=== PATIENT | female | born 1995 | race Caucasian/White ===

== ENCOUNTER 2024-06-16 06:12 | Inpatient (IN) | payer MEDICAID ==
[~2024-06-16] VITALS: Ht 170.2 cm; Wt 95.9 kg
[2024-06-16] VITALS (45 sets, daily range): BP systolic 104–135; BP diastolic 56–88; PULSE 71–104; TEMP 97.8–98.4
[~2024-06-16 06:12] MED LIST: PRENATAL TABLET PO
[2024-06-16] MEDS ORDERED: LR & Oxytocin 500 ML IV SCH ×2 (06:15)
[2024-06-16] MEDS ORDERED: LR 1,000 ML IV PRN (06:15)
[2024-06-16] MEDS ORDERED: LR 1,000 ML IV SCH ×2 (06:15→10:45)
--- NOTE | 2024-06-16 06:20 | NUR ---
0620PT AMBULATORY TO UNIT, WITH MOTHER. HERE FOR SCHEDULED INDUCTION. PT CHANGED INTO GOWN. PT COMFORTABLE IN BED. 0625THIS RN AT BEDSIDE TO PLACE TOCO AND EFM. EFM TRACING CAT I. THIS RN DISCUSSES POC WITH PT. PT VERBALIZES UNDERSTANDING AND AGREEMENT. 0630PT STATES POSITIVE MOVMENT. PT DENIES CTX. PT DENIES LOF. PT REPORTS NO VAGINAL BLEEDING SINCE THURSDAY. PT STATES SHE WAS HERE ON LABOR AND DELIVERY ON THURSDAY TO GET CHECKED AND GOT SENT HOME. 0640IV STARTED AT THIS TIME. 0645FIRST BAG OF IV FLUIDS STARTED AT THIS TIME. 0652SVE AT THIS TIME. /-3. CERVIX POSTERIOR. 0656PITOCIN STARTED AT THIS TIME.
[2024-06-16 07:09] LABS: HEMOGLOBIN 10.6 g/dl (12.5-16.0); MEAN CELL VOLUME 94 fl (80.0-100.0); MEAN CORPUSCULAR HEMOGLOBIN 31 pg (27-31); MEAN CORPUSCULAR HGB CONC 33 g/dl (33.0-37.0); MEAN PLATELET VOLUME 10.2 fl (7.4-10.4); PLATELET COUNT 197 K/mm3 (130-400); RED BLOOD COUNT 3.42 M/mm3 (4.10-5.30); REDCELL DISTRIBUTION WIDTH-CV 13.2 % (11.5-14.5)
[2024-06-16 07:11] LABS: HEMATOCRIT 32.1 % (37.0-47.0)
--- NOTE | 2024-06-16 07:28 | NUR ---
0725DR SUNDAY AT BEDSIDE. DISCUSSES POC WITH PT. PT VERBALIZES UNDERSTANDING. 0728DR SUNDAY BEDSIDE SONO AT THIS TIME. BABY HEAD DOWN VIA SONO. PT TOLERATED WELL.
[2024-06-16 07:54] LABS: BAND 9 % (0-10); LYMPHOCYTE 29 % (20.0-51.0); METAMYELOCYTE 1 % (0-0); NEUTROPHILS 58 % (42.0-75.2); PLATELET ESTIMATE NORMAL (NORMAL)
[2024-06-16 08:13] LABS: TRICYCLIC ANTIDEPRESS URINE NEGATIVE (NEGATIVE)
--- NOTE | 2024-06-16 08:31 | NUR ---
0828PT UP TO VOID PRIOR TO AROM. 0831AROM PER DR BRAND AT THIS TIME. SVE PER DR BRAND. 3. PT TOLERATED WELL. EFM TRACING CAT I.
--- NOTE | 2024-06-16 09:35 | NUR ---
SVE PER THIS RN. /-2. PT TOLERATED FAIR. PT REQUESTS EPIDURAL.
[2024-06-16] MEDS ORDERED: ROPivacaine PF 0.2% 200 ML IV ONE (10:09)
--- NOTE | 2024-06-16 10:22 | NUR ---
0940[employer]ICER NOTIFIED OF PT REQUEST FOR EPIDURAL. 1005TODD ON UNIT. THIS RN AT BEDSIDE. 1008PT SITTING UP ON SIDE OF BED. PULSE OX PLACED. PT VITAL SIGNS STABLE. 1012TODD AT BEDSIDE. DISCUSSES POC WITH PT. PT VERBALIZES UNDERSTANDING AND AGREEMENT. 1022TEST DOSE ADMINISTERED AT THIS TIME PER GUY CONNELLY. PT TOLERATED WELL. 1028PT RETURNED TO BED. POSITIONED WEDGE RIGHT. PT COMFORTABLE.
[2024-06-16] MEDS ORDERED: diphenhydrAMINE 25 MG CAP PO PRN (10:45)
[2024-06-16] MEDS ORDERED: Naloxone 0.4 MG/ML VIAL IV PRN ×2 (10:45→17:45)
[2024-06-16] MEDS ORDERED: Ondansetron 4 MG/2 ML VIAL IV PRN (10:45)
[2024-06-16] MEDS ORDERED: diphenhydrAMINE 50 MG/ML 1 ML VIAL IV PRN (10:45)
[2024-06-16] MEDS ORDERED: LR 500 ML IV PRN (10:45)
[2024-06-16] MEDS ORDERED: ePHEDrine 50 MG/10 ML VIAL IV PRN (10:45)
--- NOTE | 2024-06-16 11:45 | NUR ---
1045RECURRENT VARIABLE DECELS NOTED. THIS RN AT BEDSIDE. 1055SVE PER THIS RN. 7/80/-1. SHELDON PLACED AT THIS TIME. PT TOLERATED WELL. 1058PT REPOSITIONED WEDGE LEFT. RECURRENT VARIABLES CONTINUE. THIS RN REMAINS AT BEDSIDE. 1115DR NEWCOMER NOTIFIED. VORB TO TURN OFF PITOCIN. 1118PITOCIN TURNED OFF AT THIS TIME. VARIALE DECELS CONTINUE. 1125[place] RN AT BEDSIDE. SVE PER THIS RN. /0. PT REPOSITIONED LEFT LATERAL WITH A PEANUT BALL. 1135INTERMITTENT VARIABLE DECELS NOTED. THIS RN REMAINS AT BEDSIDE. 1141EFM DIFFICULT TO TRACE. EDITH RN AND DARRYL RN AT BEDSIDE. 1145SVE PER THIS RN. 8-/0. INTERNAL FSE PLACED PER THIS RN. 1148EFM TRACING CAT I WITH INTERMITTENT VARIABLE DECELS.
--- NOTE | 2024-06-16 12:35 | NUR ---
1230DR SUNDAY AT BEDSIDE. SVE 8/-1. FSE KNOCKED OFF. 1235DR SUNDAY PLACES IUPC AND FSE. 1245VORB PER DR BRAND TO START AMNIOINFUSION. 1249AMNIOFUSION BOLUS STARTED AT THIS TIME. 1255VORB PER DR BRAND TO RESTART PITOCIN. PITOCIN STARTED AT 2 MU. 1302RECURRENT VARIABLE DECELS NOTED. THIS RN AT BEDSIDE. PT STATES SHE FEELS NAUSEOUS. 1305LOW BLOOD PRESSURE NOTED. 100/59. 1306FIRST DOSE OF EPHEDRINE GIVEN. 1310LOW BLOOD PRESSURE RESOLVED. 106/56 1315PT REPOSITIONED TO [facility]. 1320AMNIOINFUSION BOLUS DONE. MANITENANCE DOSE STARTED. 1325RECURRENT VARIABLE DECELS CONTINUE. 1410SVE PER DR BRAND. SVE UNCHANGED. 1418PT REPOSITIONED TO [facility] AND FORWARD LEANING WITH SQUAT BAR. 1425RECURRENT VARIABLE DECELS RESOLVED.
[2024-06-16] MEDS ORDERED: NS 1,000 ML IV SCH (12:45)
--- NOTE | 2024-06-16 15:30 | NUR ---
1530PT REPORTS COUGHING AND FEELING A BIG MULLER OF FLUID WITH SOME BLOOD PRESENT. 1531THIS RN AT BEDSIDE TO ASSESS. 1535SVE PER THIS RN. /0. IUPC STILL PRESENT. FSE STILL PRESENT AND TRACING. EFM TRACING CAT I WITH INTERMITTENT VARIABLE DECELS.
--- NOTE | 2024-06-16 16:26 | NUR ---
1610DR BRAND ON UNIT 1612SVE PER DR BRAND. 1615DR SUNDAY HAS PT PRACTICE PUSH. SVE 100/100+1. 1618FOLEY REMOVED PER THIS RN. ROOM AND PT SET UP FOR DELIVERY. NSY AND CHARGE NURSES AT BEDSIDE. 1620DR BRAND AND THIS RN BEGIN PUSHING WITH PT. GOOD MATERNAL EFFORT. 1624IUPC REMOVED. 1626SVD OF VIABLE MALE PER DR BRAND. NC X1. PLACED ON MATERNAL ABDOMEN. CARE ASSUMED BY NURSERY. 1630SVD OF PLACENTA PER DR BRAND. PITOCIN BOLUS STARTED. PERINEUM INTACT. FUNDUS FIRM AT U. LOCHIA WNL. 1635ROOM AND BED PUT BACK TOGETHER. PT COMFORTABLE IN BED. PERICARE PERFORMED. CHUX PAD CHANGED. ICE PACK PLACED ON PERINEUM. FUNDUS FIRM AT U. LOCHIA WNL.
[2024-06-16] MEDS ORDERED: Magnes Hydrox (MOM) 80 MG/ML 30 ML CUP PO PRN (16:45)
[2024-06-16] MEDS ORDERED: Loratadine 10 MG TAB PO PRN (16:45)
[2024-06-16] MEDS ORDERED: Sennosides/Docusate 8.6-50 MG TAB PO SCH (17:00)
[2024-06-16] MEDS ORDERED: Acetaminophen 500 MG TAB PO SCH (17:45)
[2024-06-16] MEDS ORDERED: Phenylephrine/Mineral Oil/Petrolatum 57 GM TUBE RC PRN (17:45)
[2024-06-16] MEDS ORDERED: oxyCODONE 5 MG TAB PO PRN (17:45)
[2024-06-16] MEDS ORDERED: Witch Hazel 50% Pads Bulk TUB TP PRN (17:45)
[2024-06-16] MEDS ORDERED: Mag/Al Hydrox/Simeth Susp 30 ML CUP PO PRN (17:45)
[2024-06-16] MEDS ORDERED: Ibuprofen 600 MG TAB PO SCH (17:45)
[2024-06-16] MEDS ORDERED: Measles/Mumps/Rubella Virus Vaccine Live w Diluent 0.5 ML VIAL SQ SCH (17:45)
[2024-06-16] MEDS ORDERED: Tdap Vaccine 0.5 ML SYRINGE IM SCH (17:45)
--- NOTE | 2024-06-16 18:40 | NUR ---
Assisted to bathroom using Jhoana TOOVIA. Note, patient reports her right leg feels completely normal, left leg still heavy, can feel the bottom of her leg, but knee up still numb. Kaci care provided. Unable to spontaneously void at this time. Kaci pad, ice pack, mesh underwear, and clean gown applied. Transferred to room 215 per Jhoana TOOVIA. Instructed to call for assistance getting out of bed. Fall precautions given. Report to Nazia Hardin RN, who will resume care. Informed patient will need assistance getting out of bed. Patient verbalizes understanding, agrees to call before attempting to get out of bed.
[2024-06-16] MEDS ORDERED: traZODone 50 MG TAB PO PRN (21:00)
[2024-06-17 00:30] VITALS: BP 114/63; PULSE 70; TEMP 98
[2024-06-17 05:27] LABS: HEMOGLOBIN 10.2 g/dl (12.5-16.0)
[2024-06-17 05:36] LABS: HEMATOCRIT 31.5 % (37.0-47.0)
[2024-06-17 07:27] VITALS: BP 116/74; PULSE 85; TEMP 98.2
[2024-06-17] MEDS ORDERED: IBU600 MG PO (08:09)
[2024-06-17] MEDS ORDERED: TYLENOL 500MG500 MG PO (08:10)
[2024-06-17] MEDS ORDERED: Prenatal Vitamins/Iron/FA TAB PO SCH (09:00)
--- NOTE | 2024-06-17 09:45 | NUR ---
Initial visit: Mom thanked Typewriter Ribbon Winder for looking in on her and baby boy. Typewriter Ribbon Winder offered congratulations and God's blessings for the of her son. Patient states his siblings are all looking forward to meeting the new member of their family.
[2024-06-17 16:00] VITALS: BP 112/67; PULSE 72
== END 2024-06-17 17:30 | disposition home or self-care (01) | DRG 807 ==
LOC: OB 06:12 → LDR 06:12 → OB 06:45
PROVIDERS: ADMIT Obstetrics & Gynecology
PROC: 10E0XZZ Delivery of Products of Conception, External Approach (ICD-10-PCS; principal; 2024-06-16)
PROC: 3E033VJ Introduction of Other Hormone into Peripheral Vein, Percutaneous Approach (ICD-10-PCS; 2024-06-16)
PROC: 10907ZC Drainage of Amniotic Fluid, Therapeutic from Products of Conception, Via Natural or Artificial Opening (ICD-10-PCS; 2024-06-16)
PROC: 3E0E37Z Introduction of Electrolytic and Water Balance Substance into Products of Conception, Percutaneous Approach (ICD-10-PCS; 2024-06-16)
PROC: 10H07YZ Insertion of Other Device into Products of Conception, Via Natural or Artificial Opening (ICD-10-PCS; 2024-06-16)
DX: O99.02 Anemia complicating childbirth (principal); Z37.0 Single live birth; Z3A.39 39 weeks gestation of pregnancy
CPT/HCPCS: J2590; J2795; J7030; J7120